=== PATIENT | female | born 1965 | race Two or more races ===

== ENCOUNTER 2018-06-15 07:33 | Outpatient (CLI) | payer OTHER | END 2018-06-15 07:40 | disposition home or self-care (01) | LOC: SONOGRAMA 07:33 | DX: E04.1 Nontoxic single thyroid nodule (principal) ==

== ENCOUNTER → 2018-08-02 06:00 | Outpatient (CLI) | payer OTHER ==
[~2018-08-02 06:00] MED LIST: ATARAX50 MG PO
== END | disposition home or self-care (01) ==
LOC: LAB 06:00 → ADM 09:00 → EDSTATUS 08-04 09:00 → CIR.AMB 08-04 09:00
DX: K42.9 Umbilical hernia without obstruction or gangrene (principal); Z01.812 Encounter for preprocedural laboratory examination; Z01.818 Encounter for other preprocedural examination